=== PATIENT | female | born 1995 | race Caucasian/White ===

== ENCOUNTER 2019-11-06 13:33 | Emergency (ER) | payer OTHER, SELFPAY ==
[2019-11-06 13:35] VITALS: BP 105/66; PULSE 107; RESP 20; TEMP 36.9; O2SAT 98
--- NOTE | 2019-11-06 14:06 | ED.WOUNDLAC ---
HPI - Wound/Laceration General Chief Complaint: Wound/Laceration Stated Complaint: 24YO female w/ superficial lacs to anterior aspect of b/l ankles while mowing her lawn. States a wire has somehow swept acropss both ankles. Last Tetanus approx 1 year ago. Related Data Allergies Allergy/AdvReac Type Severity Reaction Status Date / Time No Known Allergies Allergy Verified 11/06/19 13:50 Review of Systems Review of Systems: All systems reviewed & are unremarkable except as noted in HPI and below Constitutional: Constitutional: Reports as per HPI and Reports no additional constitutional complaints Cardiovascular: Cardiovascular: Reports as per HPI and Reports no additional cardiovascular complaints Respiratory: Respiratory: Reports as per HPI and Reports no additional respiratory complaints Gastrointestinal: Gastrointestinal: Reports as per HPI and Reports no additional gastrointestinal complaints Genitourinary: Genitourinary: Reports no additional female genitourinary complaints and Reports as per HPI Musculoskeletal: Musculoskeletal: Reports no additional musculoskeletal complaints Integumentary/Breasts: Skin/Breast: Reports as per HPI Neurologic: Reports system reviewed and no additional complaints, except as documented [facility] Family History Family History Mother Hypertension Social History Social History Smoking status: Never smoker Alcohol intake: never Exam Const: General: healthy appearing, no acute distress and alert Orientation/consciousness: patient oriented x3 HENMT: Head: normal to inspection Chest: Chest palpation & inspection: normal inspection of the chest Resp: Effort & Inspection: normal respiratory effort Auscultation: clear to auscultation bilaterally Cardio: Rate: regular rate Rhythm: regular rhythm Skin: Wounds: wounds noted (superficial lace to b/l anterior aspect ankles) laceration right anterior size (8cm) and other (SUPERFICIAL LAC No S/C TISSUE VISIBLE); no drainage, margins not assessed, not malodorous, odorous and not open, laceration left anterior ankle size (6cm) and other (SUPERFICIAL LAC); bed not assessed, no drainage, not malodorous and odorous Neuro: General: patient oriented x3, moves all extremities, no focal motor deficits and CN's II-XI intact bilaterally Extrem: General: normal to inspection Psych: Appearance: grossly normal Mental Status: mental status grossly normal Course Vital Signs Vital signs: Vital Signs Temperature 98.5 F 11/06/19 13:35 Pulse Rate 107 H 11/06/19 13:35 Respiratory Rate 20 11/06/19 13:35 Blood Pressure 105/66 11/06/19 13:35 Pulse Oximetry 98 11/06/19 13:35 Temperature 98.5 F 11/06/19 13:35 Pulse Rate 107 H 11/06/19 13:35 Respiratory Rate 20 11/06/19 13:35 Blood Pressure 105/66 11/06/19 13:35 Pulse Oximetry 98 11/06/19 13:35 Procedures Laceration Laceration 1: Date: 11/06/19 Time: 14:12 Site: lower extremity (Right Ankle) Side (If applicable): right Size (cm): 8 Description: linear Depth: simple, single layer Local Anesthetic: none ====== Skin Level ====== Skin layer closed with: steri strips ====== Subcutaneous Layer ====== ====== Muscle Layer ====== ====== Tendon Layer ====== Laceration 2: Date: 11/06/19 Time: 14:14 Site: lower extremity Side (If applicable): left Size (cm): 6 Description: linear Depth: simple, single layer Local Anesthetic: none Pre-repair: wound explored ====== Skin Level ====== Skin layer closed with: steri strips ====== Subcutaneous Layer ====== ====== Muscle Layer ====== ====== Tendon Layer ====== MDM - Wound/Laceration Differential Diagnosis Differential diagnosis: Likely lac
[2019-11-06 14:29] VITALS: RESP 15; O2SAT 100
== END 2019-11-06 14:24 | disposition home or self-care (01) ==
PROVIDERS: Emergency Provider Family Medicine; PCP Family Medicine
DX: S81.812A Laceration without foreign body, left lower leg, initial encounter (principal); S81.811A Laceration without foreign body, right lower leg, initial encounter; W45.8XXA Other foreign body or object entering through skin, initial encounter
CPT/HCPCS: 99283

== ENCOUNTER 2021-06-07 21:39 | Emergency (ER) | payer OTHER, SELFPAY ==
[2021-06-07 21:42] VITALS: BP 120/70; PULSE 99; RESP 16; TEMP 36.6; O2SAT 99
--- NOTE | 2021-06-07 22:01 | ED.BACK ---
HPI - Back Pain/Injury General Chief Complaint: Back Pain/Injury Stated Complaint: rib injury Time Seen by Provider: 06/07/21 22:02 Source: patient History of Present Illness HPI Narrative: 25-year-old female , 28 weeks is recovering from a pneumonia for which she was treated with Augmentin. The patient has 2 days worth of antibiotics for complete treatment of pneumonia. The patient had a left posterior chest wall pain which according to her physician was a floating rib which was out of place. The patient went to a chiropractor and had that fixed. The patient presents to the ER with -- right posterior chest wall pain made worse by deep breathing. The pain started after she bent down to flower buncher or picker something. The pain does not radiate. No history of trauma. MD elicited complaint: back pain Pertinent past history: prior back pain Onset (ago): hour(s) ( 1 hour ago) Timing: intermittent Similar Symptoms Previously: Yes Quality: sharp and stabbing Location: right flank Radiation: none Relieving factors: immobilization Context: while lifting and bending Associated symptoms: denies other symptoms Related Data Home Medications Medication Instructions Recorded Confirmed amoxicillin-pot clavulanate 1 tablet PO DIRECTED 06/07/21 06/07/21 Allergies Allergy/AdvReac Type Severity Reaction Status Date / Time No Known Allergies Allergy Verified 06/07/21 21:59 Review of Systems Review of Systems: All systems reviewed & are unremarkable except as noted in HPI and below Constitutional: Constitutional: Reports as per HPI Eyes: Eyes: Reports as per HPI ENT: Reports system reviewed and no additional complaints, except as documented Cardiovascular: Cardiovascular: Reports as per HPI and Reports no additional cardiovascular complaints Respiratory: Respiratory: Reports no additional respiratory complaints Comments: right posterior chest wall pain made worse by deep breathing Gastrointestinal: Gastrointestinal: Reports as per HPI and Reports no additional gastrointestinal complaints Genitourinary: Comments: 28 weeks . Musculoskeletal: Musculoskeletal: Reports no additional musculoskeletal complaints Integumentary/Breasts: Skin/Breast: Reports system reviewed and no additional complaints, except as docu Neurologic: Reports system reviewed and no additional complaints, except as documented Psychiatric: Psychiatric: Reports no additional psychiatric complaints Endocrine: Endocrine: Reports no additional endocrine complaints Hematologic/Lymphatic: Hematologic/Lymphatic: Reports no additional hematologic/lymphatic complaints Allergic/Immunologic: Allergic/Immunologic: Reports no additional allergic/immunologic complaints [facility] Family History Family History Mother Hypertension Social History Social History Smoking status: Never smoker Alcohol intake: never Exam Narrative: patient is afebrile and hemodynamically stable. Const: General: no acute distress and alert Orientation/consciousness: patient oriented x3 HENMT: Head: normal to inspection Eyes: Conjunctivae: conjunctivae normal Pupils: Equal, round and reactive pupils present EOM: EOMs intact bilaterally Neck: Neck: normal visual inspection and no lymphadenopathy Chest: Chest palpation & inspection: normal inspection of the chest Other: Right posterior chest wall / flank pain. No tenderness elicited. Resp: Effort & Inspection: normal respiratory effort Auscultation: clear to auscultation bilaterally Cardio: Rate: regular rate Rhythm: regular rhythm GI: GI Palp: Yes Soft to palpation : Other: Gravid uterus extending about the umbilicus. heart tones 130-140 beats per minute. no uterine tenderness abdomen is soft and nontender. Back/Spine/Pelvis: Back: no CVA tenderness Skin: General skin
--- NOTE | 2021-06-07 22:20 | PC.NURSE ---
Pt offered HIV testing due to . Pt refused at this time due to routine OBGYN care and signed a paper refusal.
== END 2021-06-07 22:43 | disposition home or self-care (01) ==
PROVIDERS: Emergency Provider Internal Medicine Critical Care Medicine; PCP Family Medicine
DX: R07.89 Other chest pain (principal); Z3A.28 28 weeks gestation of pregnancy
CPT/HCPCS: 99281